=== PATIENT | female | born 1965 ===

== ENCOUNTER 2017-11-20 19:34 | Emergency (ER) | payer SELFPAY ==
[2017-11-20 20:13] VITALS: TEMP 97.9
[2017-11-20] MEDS ORDERED: DiphenhydrAMINE 50 mg/ml Inj IVP STA (20:29)
[2017-11-20] MEDS ORDERED: Sodium Chloride 0.9% 1,000 ML IV ONE (20:29)
[2017-11-20] MEDS ORDERED: DiphenhydrAMINE 50 mg/ml Inj ONE (20:56)
[2017-11-20 21:12] LABS: BASO % 0.6 % (0.0-2.0); EOS # 0.1 K/uL (0.0-0.7); HEMOGLOBIN 12.7 g/dL (11.0-16.0); LYMPH # 2.3 K/uL (1.0-4.3); MEAN CELL VOLUME 88.3 fL (81.0-99.0); MEAN CORPUSCULAR HEMOGLOBIN 29.8 pg (27.0-31.0); MEAN CORPUSCULAR HGB CONC 33.7 g/dL (33.0-37.0); MEAN PLATELET VOLUME 7.7 fL (7.2-11.7); MONO # 0.5 K/uL (0.0-0.8); MONO % 7.1 % (0.0-10.0); NEUT # 3.7 K/uL (1.8-7.0); NEUT % 56.3 % (50.0-75.0); RBC 4.27 Mil/uL (3.80-5.20); RED CELL DISTRIBUTION WIDTH 14.4 % (11.5-14.5); WHITE BLOOD COUNT 6.5 K/uL (4.8-10.8)
[2017-11-20 21:20] LABS: ALB/GLOB RATIO 1.4 (1.0-2.1); ALT/SGPT 36 U/L (9-52); AST/SGOT 18 U/L (14-36); BLOOD UREA NITROGEN 12 mg/dL (7-17); CALCIUM 9.1 mg/dl (8.6-10.4); GFR AFRICAN-AMERICAN > 60; GFR NON-AFRICAN AMERICAN > 60
--- NOTE | 2017-11-20 21:43 | C.PDOC ---
History Of Present Illness 51 year old female presents to the ER with a complaint of a constant throbbing headache to the face that radiates to the back of the head for the past 12 days , associated with photophobia, nausea, and dizziness. Patient has been taking advil at home with no relief. Denies head injury, neck pain, weakness, numbness , or change in vision. Time Seen by Provider: 11/20/17 20:12 Chief Complaint (Nursing): Headache History Per: Patient History/Exam Limitations: no limitations Onset/Duration Of Symptoms: Days Current Symptoms Are (Timing): Still Present Associated Symptoms: Photophobia, Nausea, Other (Dizziness) Recent travel outside of the [place]: No Past Medical History Reviewed: Historical Data, Nursing Documentation, Vital Signs Vital Signs: Last Vital Signs Temp 97.9 F 11/20/17 20:06 Pulse 68 11/20/17 22:46 Resp 20 11/20/17 22:46 BP 119/80 11/20/17 22:46 Pulse Ox 98 11/21/17 04:37 - Medical History PMH: HTN Family History: States: Unknown Family Hx - Social History Hx Alcohol Use: No Hx Substance Use: No - Immunization History Hx Tetanus Toxoid Vaccination: No Hx Influenza Vaccination: No Review Of Systems Constitutional: Negative for: Fever, Chills Eyes: Negative for: Vision Change Gastrointestinal: Positive for: Nausea Musculoskeletal: Negative for: Neck Pain Neurological: Positive for: Headache, Dizziness, Other (Photophobia) Physical Exam - Physical Exam Appears: Non-toxic Skin: Normal Color, Warm, Dry Head: Atraumatic, Normacephalic, Other (No temporal artery tenderness) Eye(s): bilateral: Normal Inspection, PERRL, EOMI Ear(s): Bilateral: Normal Oral Mucosa: Moist Throat: Normal, No Erythema Neck: Normal, Supple Chest: Symmetrical, No Tenderness Cardiovascular: Rhythm Regular Respiratory: Normal Breath Sounds, No Rales, No Rhonchi, No Wheezing Gastrointestinal/Abdominal: Soft, No Tenderness Back: No Vertebral Tenderness, No Paraspinal Tenderness Extremity: Normal ROM (x4) Neurological/Psych: Oriented x3, Normal Speech, Normal Cranial Nerves, Normal Motor, Normal Sensation Gait: Steady ED Course And Treatment - Laboratory Results Result Diagrams: 11/20/17 21:03 11/20/17 21:03 O2 Sat by Pulse Oximetry: 98 (Room air) Pulse Ox Interpretation: Normal - CT Scan/US CT Head Other Rad Studies (CT/US): Read By Radiologist, Radiology Report Reviewed CT/US Interpretation: IMPRESSION: 1. Right sided dural hyperdensity measuring up to 5 mm thickness which could represent hematoma. in the setting of trauma. In the nontraumatic setting this could represent a dural-based mass. Correlate with clinical parameters and recommend short interval followup CT versus MRI for further. evaluation. 2. Indeterminate intracranial calcifications which may be leptomeningeal in location. This could. represent sequela of prior trauma, infection, or metabolic abnormality (i.e. hypoparathyroidism). 3. Hypodensity in the region of the left basal ganglia measuring 3 mm which may represent sequelae. of a remote lacunar infarction or a prominent Virchow- Chris space Medical Decision Making Medical Decision Making: CT head and blood work ordered. Benadryl, reglan, toradol, and IV fluids administered. On re-exam, the patient reports improvement of symptoms. Lungs are CTA, heart is RRR, abdomen is soft, non-tender and tolerating PO well. Ambulatory in the ED with steady gait. Follow up with the medical doctor within 1-2 days. Return if worsened. CT results discussed with patient and advised her to follow up with PMD for further evaluation. Disposition Counseled Patient/Family Regarding: Studies Performed, Diagnosis, Need For Followup, Rx Given - Disposition Referrals: [facility] [Outside] Jaiden Acosta MD [Staff Provider] - [facility] [Outside] Disposition: HOME/ ROUTINE Disposition Time: 21:46 Condition: GOOD Additional Instructions: Follow up with the medical doctor within 1-2 days. return if worsened. Prescriptions: Metoclopramide [Reglan] 1 tab PO TID PRN #25 tab PRN Reason: Nausea/Vomiting Naproxen [Naprosyn] 500 mg PO BID #20 tab Instructions: Headache, Adult (DC) Forms: CDEL (Hebrew) Print Language: FRISIAN - Clinical Impression Clinical Impression: Headache - PA / SOCIAL WORK MSW / Resident Statement MD/DO has reviewed & agrees with the documentation as recorded. - Scribe Statement The provider has reviewed the documentation as recorded by the Scribjan Malone All medical record entries made by the Scribjan were at my direction and personally dictated by me. I have reviewed the chart and agree that the record accurately reflects my personal performance of the history, physical exam, medical decision making, and the department course for this patient. I have also personally directed, reviewed, and agree with the discharge instructions and disposition.
[2017-11-20 22:50] VITALS: BP 119/80; PULSE 68; RESP 20
[2017-11-21 04:29] VITALS: O2SAT 98
--- NOTE | 2017-11-21 09:14 | CT ---
Date of service: 11/20/2017 PROCEDURE: CT HEAD WITHOUT CONTRAST. HISTORY: headache x 12 days, hypertension COMPARISON: None available. TECHNIQUE: Axial computed tomography images were obtained through the head/brain without intravenous contrast. Radiation dose: Total exam DLP = 786.26 mGy-cm. This CT exam was performed using one or more of the following dose reduction techniques: Automated exposure control, adjustment of the mA and/or kV according to patient size, and/or use of iterative reconstruction technique. FINDINGS: HEMORRHAGE: No intracranial hemorrhage. BRAIN: No mass effect or edema. No atrophy or chronic microvascular ischemic changes. Several nodular cortical calcifications are noted which are likely post infectious/postinflammatory. There is they very small dural-based calcification seen in the right posterior parietal region on series 4, image 31. This measures approximately 6 mm in diameter. This could represent a very small meningioma. VENTRICLES: Unremarkable. No hydrocephalus. CALVARIUM: Unremarkable. PARANASAL SINUSES: Unremarkable as visualized. No significant inflammatory changes. MASTOID AIR CELLS: Unremarkable as visualized. No inflammatory changes. OTHER FINDINGS: None. IMPRESSION: No intracranial hemorrhage. Please note that in the preliminary report of this examination a questionable extra-axial blood collection was described along the right lateral temporal region. This is felt to represent artifact and not a gurpreet extra-axial hematoma. Several nodular cortical calcifications likely postinfectious/postinflammatory. Very small dural-based calcification in the right posterior parietal region, possibly a small meningioma. Otherwise unremarkable. The preliminary findings for this examination were reported by [facility] at 9:31 p.m. on 11/20/2017. There is discordance of this report with the preliminary findings.
== END 2017-11-20 22:46 | disposition home or self-care (01) ==
LOC: C.ER 19:34
DX: R51 Headache (principal)
CPT/HCPCS: 70450; 80053; 85025; 96374; 96375; 99284; J1200; J1885; J2765; J7030